=== PATIENT | male | born 1965 | race Caucasian/White ===

== ENCOUNTER 2016-12-21 10:05 | Day surgery (SDC) | payer OTHER ==
[~2016-12-21] VITALS: Ht 185.4 cm; Wt 101.0 kg
[2016-12-21] VITALS (14 sets, daily range): BP systolic 91–117; BP diastolic 47–71; PULSE 48–72; RESP 11–36; Ht 185.4 cm; Wt 101.0 kg
--- NOTE | 2016-12-21 05:49 | HPN ---
Date/Time of Note Date/Time of Note DATE: 12/21/16 TIME: 05:49 Interval H&P Admission Note Pt. seen H&P reviewed: No system changes RACHELLE RANDOLPH MD Dec 21, 2016 05:49
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
[~2016-12-21 10:05] MED LIST: BUPIVACAINE 0.5% (SDV) 30 ML, morphine SULFATE (PF) 8 MG, EPINEPHrine 0.3 MG, KETOROLAC... IRR SCH; CEFAZOLIN 1 GM INJ ONE; CEFAZOLIN 2 GM/50 ML (PMX) 50 ML IVPB ONE; GABAPENTIN 300 MG CAP PO ONE; ROCURONIUM 50 MG INJ ONE; TRANEXAMIC ACID 1,000 MG in SOD CHLORIDE 0.9% 100 ML IVPB ONE; traMADol 50 MG TAB PO ONE
[2016-12-21] MEDS ORDERED: LACTATED RINGER'S 1,000 ML IV* SCH (10:30)
[2016-12-21] MEDS ORDERED: FENTAnyl 50 MCG/ML VIAL IV PRN ×3 (15:00)
[2016-12-21] MEDS ORDERED: HYDROmorphONE (0.2 MG/ML) 10ML SYG IV PRN ×3 (15:00)
[2016-12-21] MEDS ORDERED: ONDANSETRON 4 MG INJ IV PRN (15:00)
[2016-12-21] MEDS ORDERED: DIPHENHYDRAMINE 50 MG INJ IV PRN (15:00)
[2016-12-21] MEDS ORDERED: MEPERIDINE 25 MG INJ IV PRN (15:00)
[2016-12-21] MEDS ORDERED: hydrALAzine 20 MG INJ IV PRN (15:00)
[2016-12-21] MEDS ORDERED: EPHEDrine SULFATE 50 MG/5 ML SYG IV PRN (15:00)
[2016-12-21] MEDS ORDERED: KETOROLAC 30 MG INJ IV PRN (15:00)
[2016-12-21] MEDS ORDERED: METOCLOPRAMIDE 10 MG INJ IV PRN (15:00)
[2016-12-21] MEDS ORDERED: OXYCODONE/ACETAMINOPHEN (5/325) TAB PO PRN ×2 (15:00)
[2016-12-21] MEDS ORDERED: LABETALOL HCL 20MG INJ IV PRN (15:00)
[2016-12-21] MEDS ORDERED: LIDOCAINE 2% (SDV) 5 ML INJ ONE (15:37)
[2016-12-21] MEDS ORDERED: PROPOFOL 100 ML ONE (15:37)
[2016-12-21] MEDS ORDERED: ROCURONIUM 50 MG INJ ONE (15:37)
[2016-12-21] MEDS ORDERED: NEOSTIGMINE 3 MG/3 ML SYRINGE ONE (16:45)
[2016-12-21] MEDS ORDERED: GLYCOPYRROLATE 0.4 MG INJ ONE (16:45)
--- NOTE | 2016-12-21 16:48 | RADRPT ---
PROCEDURE: Intraoperative imaging of the right hip with fluoroscopy. CLINICAL INDICATION: Right hip pain. Intraoperative. TECHNIQUE: 3 images of the right hip were obtained in the operating room with an image intensifier . No radiologist was in attendance. 38 seconds of fluoroscopy time was used. COMPARISON: No prior study is available for comparison. FINDINGS: Images demonstrate surgical instruments overlying the right hip. IMPRESSION: 1. Satisfactory intraoperative imaging of the right hip. RPTAT: QQ .Sukhdeep Landeros MD, MD Date Time Electronically viewed and signed by .Sukhdeep Landeros MD, on 12/21/2016 16:47 .R/
--- NOTE | 2016-12-21 16:52 | PDOCDIS ---
Discharge Instructions DIAGNOSIS Discharge Diagnosis Right hip labral tearing CONDITION Patient Condition: Good HOME CARE INSTRUCTIONS: Diet Instructions: Regular ACTIVITY: Activity Restrictions: Slowly Increase Activity Keep Limb Elevated Bathing Restrictions: Shower FOLLOW UP/APPOINTMENTS Follow-up Plan 2 weeks SCHOOL/WORK RELEASE May return to School/Work with: With Restrictions School/Work Release Comment: Crutches as necessary for 10 days to begin weightbearing right away after 2 RACHELLE RANDOLPH MD Dec 21, 2016 16:52
--- NOTE | 2016-12-21 16:56 | OPR ---
Date/Time of Note Date/Time of Note DATE: 12/21/16 TIME: 16:53 Operative Report Procedure Date: Dec 21, 2016 Preoperative Diagnosis Right hip labral tear Postoperative Diagnosis 1. Right hip labral tear 2. Right hip arthrosis with posttraumatic osteoarthritis Operation/Procedure Performed Right hip arthroscopy with extensive debridement and chondroplasty Surgeon see signature line Construction Ironworker Axel Vu MD Anesthesia Type: general Estimated Blood Loss: minimal Transfusion none Specimen None Grafts/Implants none Complications none Pt Condition Post Procedure: stable Disposition: PACU Procedure Description INDICATIONS FOR PROCEDURE AND SUMMARY: This patient has the clinical problem of femoroacetabular impingement. Essentially, there is an overgrowth of the femoral head and neck junction that is leading to the clinical problem of a torn labrum with its mechanical symptomatology and pain. The surgical procedure involves first a diagnostic arthroscopy and debridement or repair of the labral tear, followed by a separate entrance into the area of the impingement lesion. The hip is divided into two separate compartments termed the central and peripheral compartments. Traditionally, the procedures performed in the central compartment include labral debridement, synovectomy, and chondroplasty. The procedure described as a femoral neck resection includes treatment of the central compartment problems as well as re-positioning the extremity, starting new portals in the peripheral compartment (using fluoroscopic guidance once again), completing a diagnostic arthroscopy of this compartment and then finally resection of the femoral neck impingement lesion that is present. The concept of the procedure is somewhat like the evaluation of the shoulder where the glenohumeral compartment is evaluated, followed by the subacromial compartment. JEWEL BEARING BROACHER SURGEON: Axel Vu MD was asked to be present at my request as a result of the significant surgical complexity associated with this procedure. Specifically, the arthroscopic resection of the femoral neck requires expert assistance with respect to the positioning of the arthroscope, which is a 70- degree arthroscope, while the surgeon exchanges instruments to perform the resection and labral repair. In my opinion, the assistance offered by a neurosurgical physician assistant is not sufficient as a result of their lack of training with these instruments. Dr. Vu should therefore be compensated for their time. PROCEDURE: Following the administration of general anesthesia supplemented with local anesthetic, the patient was placed in the supine position on the [employer] hip traction device. All prominences were properly padded, including the perineum and the ipsilateral arm. Examination of the right hip revealed a range of motion of 10 of internal rotation with 90 of flexion. There is a very solid endpoint. There is a mild flexion contracture as well. The right hip was prepped and draped in the usual sterile fashion. The leg was then placed in traction. Under fluoroscopic guidance, anterior and anterolateral portals were then established in the central compartment. CENTRAL COMPARTMENT DIAGNOSTIC: Examination revealed extensive chondral delamination of both the acetabulum and femur. Specifically, the area of the anterolateral acetabulum from about the 1 o'clock position posteriorly to the 8 o'clock position had grade III chondromalacia in a diffuse fashion. The labrum was generally frayed in this area as well. The femoral articular cartilage had diffuse grade III chondromalacia throughout the central weightbearing portion. There was extreme synovitis in the notch as well. CENTRAL COMPARTMENT PROCEDURE: The shaver and the ablator were then inserted. A limited capsulotomy was then performed over the area of the labral fraying. The area was then debrided extensively and a capsulectomy was performed in order to improve his range of motion. The sub-labral recess was obliterated secondary to scarring. The chondral delamination was then addressed with a chondroplasty employing shaver and the ablator. The arthroscopic equipment was then removed. The leg was taken out of traction and repositioned to 45 of flexion with neutral rotation. The anterior portal was then used for entry into the peripheral compartment while using fluoroscopic localization for the appropriate portal position along the femoral neck. PERIPHERAL COMPARTMENT DIAGNOSTIC: Endoscopic examination revealed a good labral seal. Further evaluation revealed the peripheral femoral cartilage to have developed some diffuse grade II chondromalacia throughout as well. With regards to a cam lesion, there was no residual lesion. The arthroscopic equipment was then removed, following thorough irrigation of the joint to assure that all bony debris was cleared. The wounds were closed using #4-0 Monocryl sutures, followed by a sterile dressing. The patient was then extubated and transported to the recovery room in stable condition, having tolerated the procedure well. RACHELLE RANDOLPH MD Dec 21, 2016 16:56
== END 2016-12-21 18:55 | disposition home or self-care (01) ==
LOC: SDS 10:05
PROVIDERS: ATTEND Orthopaedic Surgery
DX: M16.11 Unilateral primary osteoarthritis, right hip (principal); S73.191D Other sprain of right hip, subsequent encounter; X58.XXXD Exposure to other specified factors, subsequent encounter
CPT/HCPCS: 29862; 73530; 80053; 81003; 85025; 85610; 85730; J0171; J0690; J0735; J1170; J1885; J2274; J2405; J2710; J3010; J3370